=== PATIENT | female | born 1945 | race Caucasian/White ===

== ENCOUNTER 2016-10-30 01:20 | Emergency (ER) | payer MEDICARE, OTHER ==
[2016-10-30 03:53] VITALS: BP 165/85
[2016-10-30] MEDS ORDERED: Albuterol 0.083% 2.5 MG/3 ML Neb Soln NEB ONE (04:07)
--- NOTE | 2016-10-30 04:38 | EDM.PDOC ---
<Gilberto Steven Charisse - Last Filed: 10/30/16 07:02> ED HPI GENERAL MEDICAL PROBLEM - General Chief Complaint: Respiratory Problem Stated Complaint: HARD TIME BREATHING Time Seen by Provider: 10/30/16 04:00 Source of Information: Reports: Patient History Limitations: Reports: No Limitations - History of Present Illness INITIAL COMMENTS - FREE TEXT/NARRATIVE: This lady complains of shortness of breath and some chest discomfort. She's had some shortness of breath all day long. She also is describes some pain in the middle of her back that seems to be associated with breathing. She also gets some substernal chest pain which seems to be mild. She doesn't think that the substernal pain is really associated with breathing. There has been no fever. Just a little bit of nonproductive cough. This lady does use EPAP at night and without this EPAP she short of breath when she is lying in bed. Nothing that sounds like paroxysmal nocturnal dyspnea however. She seems to get a little bit of swelling in her legs mostly the right. She's prone to respiratory infections. 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 back Pain Score (Numeric/FACES): 4 - Related Data Allergies Allergy/AdvReac Type Severity Reaction Status Date / Time cephalexin [From Keflex] Allergy Anaphylactic Verified 10/30/16 03:39 Shock clindamycin Allergy Anaphylactic Verified 10/30/16 03:39 Shock codeine Allergy Anaphylactic Verified 10/30/16 03:39 Shock diphenhydramine Allergy Other Verified 10/30/16 03:39 [From Benadryl] epinephrine Allergy Other Verified 10/30/16 03:39 parsley Allergy Anaphylactic Verified 10/30/16 03:40 Shock Penicillins Allergy Hives Verified 10/30/16 03:39 celery Allergy Anaphylactic Uncoded 10/30/16 03:40 Shock cilantro Allergy Anaphylactic Uncoded 10/30/16 03:40 Shock Home Meds: Home Meds Aspirin [Halfprin] 81 mg PO DAILY 10/30/16 [History] Biotin 5 mg PO Q2D 10/30/16 [History] Cetirizine [ZyrTEC] 1 tab PO DAILY 10/30/16 [History] Docusate Sodium [Colace] 1 tab PO DAILY 10/30/16 [History] Glucosamine/D3/Boswellia Rosie [Osteo Bi-Flex Caplet] 1 tab PO Q2D 10/30/16 [ History] Hydrochlorothiazide 25 mg PO DAILY 10/30/16 [History] Metoprolol Succinate [Metoprolol Succinate] 12.5 mg PO DAILY 10/30/16 [History] Multivitamin [Multivitamins] 1 tab PO DAILY 10/30/16 [History] atorvaSTATin [Lipitor] 40 mg PO BEDTIME 10/30/16 [History] Past Medical History Cardiovascular History: Reports: CAD, High Cholesterol, [place], Pulmonary Hypertension Respiratory History: Reports: None [employer] History: Reports: Musculoskeletal History: Reports: Osteoarthritis Hematologic History: Reports: None Immunologic History: Reports: None Dermatologic History: Reports: None - Past Surgical History Cardiovascular Surgical History: Reports: Coronary Artery Bypass, Coronary Artery Stent Respiratory Surgical History: Reports: None GI Surgical History: Reports: Cholecystectomy Neurological Surgical History: Reports: Lumbar Spine Oncologic Surgical History: Reports: Biopsy of Breast Social & Family History - Tobacco Use Smoking Status *Q: Never Smoker - Caffeine Use Caffeine Use: Reports: None - Recreational Drug Use Recreational Drug Use: No ED ROS GENERAL - Review of Systems Review Of Systems: ROS reveals no pertinent complaints other than HPI. ED EXAM, GENERAL - Physical Exam Exam: See Below Exam Limited By: No Limitations General Appearance: Alert, WD/WN, No Apparent Distress Eye Exam: Bilateral Eye: Normal Inspection Throat/Mouth: Normal Inspection Respiratory/Chest: Lungs Clear, Normal Breath Sounds Cardiovascular: Normal Peripheral Pulses, Regular Rate, Rhythm, No Murmur GI/Abdominal: Non-Tender Extremities: Pedal Edema (About 1+ pedal edema to the right lower leg) Neurological: Alert, Oriented, No Motor/Sensory Deficits Psychiatric: Normal Affect Skin Exam: Warm, Dry Course - Vital Signs Last Recorded V/S: Last Vital Signs Temp 97.6 F 10/30/16 03:51 Pulse 58 L 10/30/16 03:51 Resp 16 10/30/16 03:51 BP 165/85 H 10/30/16 03:51 Pulse Ox 93 L 10/30/16 03:51 - Orders/Labs/Meds Orders: Active Orders 24 hr Category Date Time Status EKG Documentation Completion [RC] ASDIRECTED Care 10/30/16 04:06 Active RT Aerosol Therapy [RC] ASDIRECTED Care 10/30/16 04:07 Active Ang Chest [CT] Stat Exams 10/30/16 05:31 Taken Chest 2V [CR] Urgent Exams 10/30/16 04:06 Taken Saline Lock Insert [OM.PC] Urgent Oth 10/30/16 05:31 Ordered EKG 12 Lead [EK] Urgent Ther 10/30/16 04:06 Ordered Labs: Laboratory Tests 10/30/16 10/30/16 10/30/16 Range/Units 04:30 04:30 04:30 WBC 6.3 (4.5-11.0) K/uL RBC 4.71 (3.30-5.50) M/uL Hgb 14.7 (12.0-15.0) g/dL Hct 43.6 (36.0-48.0) % MCV 93 (80-98) fL MCH 31 (27-31) pg MCHC 34 (32-36) % Plt Count 176 (150-400) K/uL Neut % (Auto) 35 L (36-66) % Lymph % (Auto) 44 (24-44) % Culberson % (Auto) 16 H (2-6) % Eos % (Auto) 4 (2-4) % Baso % (Auto) 1 (0-1) % D-Dimer, Quantitative 838 H (0.0-400.0) ng/mL Sodium 142 (140-148) mmol/L Potassium 3.5 L (3.6-5.2) mmol/L Chloride 104 (100-108) mmol/L Carbon Dioxide 30 (21-32) mmol/L Anion Gap 11.5 (5.0-14.0) mmol/L BUN 13 (7-18) mg/dL Creatinine 0.8 (0.6-1.0) mg/dL Est Cr Clr Drug Dosing 59.72 mL/min Estimated GFR (MDRD) > 60 (>60) Glucose 136 H (74-106) mg/dL Calcium 8.9 (8.5-10.1) mg/dL Total Bilirubin 1.4 H (0.2-1.0) mg/dL AST 45 H (15-37) U/L ALT 55 (12-78) U/L Alkaline Phosphatase 70 (46-116) U/L Troponin I 0.046 (0.000-0.056) ng/mL [id number] Pept 138 H (5-125) pg/mL Total Protein 7.4 (6.4-8.2) g/dL Albumin 3.6 (3.4-5.0) g/dL Globulin 3.8 H (2.3-3.5) g/dL Albumin/Globulin Ratio 1.0 L (1.2-2.2) 10/30/16 Range/Units 07:00 WBC (4.5-11.0) K/uL RBC (3.30-5.50) M/uL Hgb (12.0-15.0) g/dL Hct (36.0-48.0) % MCV (80-98) fL MCH (27-31) pg MCHC (32-36) % Plt Count (150-400) K/uL Neut % (Auto) (36-66) % Lymph % (Auto) (24-44) % Culberson % (Auto) (2-6) % Eos % (Auto) (2-4) % Baso % (Auto) (0-1) % D-Dimer, Quantitative (0.0-400.0) ng/mL Sodium (140-148) mmol/L Potassium (3.6-5.2) mmol/L Chloride (100-108) mmol/L Carbon Dioxide (21-32) mmol/L Anion Gap (5.0-14.0) mmol/L BUN (7-18) mg/dL Creatinine (0.6-1.0) mg/dL Est Cr Clr Drug Dosing mL/min Estimated GFR (MDRD) (>60) Glucose (74-106) mg/dL Calcium (8.5-10.1) mg/dL Total Bilirubin (0.2-1.0) mg/dL AST (15-37) U/L ALT (12-78) U/L Alkaline Phosphatase (46-116) U/L Troponin I 0.042 (0.000-0.056) ng/mL [id number] Pept (5-125) pg/mL Total Protein (6.4-8.2) g/dL Albumin (3.4-5.0) g/dL Globulin (2.3-3.5) g/dL Albumin/Globulin Ratio (1.2-2.2) Meds: Medications Discontinued Medications Generic Name Dose Route Start Last Admin Trade Name Freq PRN Reason Stop Dose Admin Albuterol 2.5 mg 10/30/16 04:07 10/30/16 04:16 Proventil Neb Soln NEB 10/30/16 04:08 2.5 mg ONETIME ONE Administration Furosemide 20 mg 10/30/16 05:33 10/30/16 06:24 Lasix IVPUSH 10/30/16 05:34 20 mg ONETIME ONE Administration Sodium Chloride 100 mls @ 4 mls/sec 10/30/16 05:44 10/30/16 06:04 Normal Saline IV 10/30/16 05:45 4 mls/sec ASDIRECTED STA Administration Iopamidol 100 ml 10/30/16 05:44 10/30/16 06:03 Isovue-370 (76%) IV 10/30/16 05:45 100 ml . DIRECTED STA Administration Sodium Chloride 10 ml 10/30/16 05:31 10/30/16 06:24 Saline Flush FLUSH 10 ml ASDIRECTED PRN Administration Keep Vein Open - Radiology Interpretation Free Text/Narrative:: Chest x-ray shows mild cardiomegaly and bibasilar pulmonary edema - Re-Assessments/Exams Free Text/Narrative Re-Assessment/Exam: 10/30/16 06:53 EKG shows a sinus bradycardia at 54 bpm there is a nonspecific repolarization abnormality there is very slight ST depression in V4 and V5 and 6 Noted slightly increased troponin and a positive d-dimer. BNP is negative. The plan at this point is to do a chest CT to rule out pulmonary embolus. Three- hour troponin has been ordered for 7 AM. She received Lasix 20 mg IV. The patient will be turned over to the incoming ER doctor at 7 AM 10/30/16 07:[address] Montes Departure - Departure Disposition: Home, Self-Care 01 Clinical Impression: Atypical chest pain Dyspnea Qualifiers: Dyspnea type: unspecified Qualified Code(s): R06.00 - Dyspnea, unspecified - Discharge Information Instructions: Shortness of Breath, [id number], Nonspecific Chest Pain Referrals: PCP,None [Primary Care Provider] - Forms: ED Department Discharge Care Plan Goals: Reduce salt intake, increase activity as tolerated and return any time if worsening or concerns. No medication changes. Consider a stress test when you return home. <Aubrey Gonzáles - Last Filed: 10/30/16 10:30> Course - Re-Assessments/Exams Free Text/Narrative Re-Assessment/Exam: 10/30/16 07:56 Patient seen and evaluated by Dr. Steven, care turned over pending a troponin and vascular chest study. Both were normal, patient remained very stable and relatively asymptomatic. She was discharged and encouraged to set up a stress test when she returns home, and return to ER if worsening or concerns. Departure - Departure Time of Disposition: 08:16 Condition: Good
[2016-10-30] MEDS ORDERED: Sodium Chloride 0.9% 10 ML Syringe FLUSH PRN (05:31)
[2016-10-30] MEDS ORDERED: Furosemide 20 MG/2 ML VIAL IVPUSH ONE (05:33)
[2016-10-30] MEDS ORDERED: Sodium Chloride 0.9% 100 ML IV STA (05:44)
[2016-10-30] MEDS ORDERED: Iopamidol 755 Mg/ML 100 ML Bottle IV STA (05:44)
--- NOTE | 2016-10-30 11:06 | CR ---
Chest 2V INDICATION: pain FINDINGS: Sternotomy. Cardiac enlargement. Slight prominence of the pulmonary vascularity. No focal infiltrate or pleural effusion.
== END 2016-10-30 08:17 | disposition home or self-care (01) ==
LOC: JP.ED 01:20
DX: R07.89 Other chest pain (principal); R06.00 Dyspnea, unspecified; I25.10 Atherosclerotic heart disease of native coronary artery without angina pectoris; E78.00 Pure hypercholesterolemia, unspecified; I25.2 Old myocardial infarction; I27.2 Other secondary pulmonary hypertension; M19.90 Unspecified osteoarthritis, unspecified site; Z90.49 Acquired absence of other specified parts of digestive tract; Z95.1 Presence of aortocoronary bypass graft; Z79.82 Long term (current) use of aspirin; Z95.5 Presence of coronary angioplasty implant and graft; Z79.899 Other long term (current) drug therapy; Z88.0 Allergy status to penicillin; Z88.8 Allergy status to other drugs, medicaments and biological substances; Z88.1 Allergy status to other antibiotic agents; Z91.018 Allergy to other foods; Z88.5 Allergy status to narcotic agent
CPT/HCPCS: 36415; 71020; 71275; 80053; 83880; 84484; 85025; 85379; 93005; 93010; 96374; 99284; 99285; J1940; J7030; J7050; Q9967

== ENCOUNTER 2020-12-07 18:49 | Emergency (ER) | payer MEDICARE ==
[2020-12-07 20:12] VITALS: BP 140/66; PULSE 65
--- NOTE | 2020-12-07 20:21 | EDM.PDOC ---
ED HPI GENERAL MEDICAL PROBLEM - General Chief Complaint: Lower Extremity Injury/Pain Stated Complaint: R LEG PAIN Time Seen by Provider: 12/07/20 20:21 Source of Information: Reports: Patient, Family History Limitations: Reports: No Limitations - History of Present Illness INITIAL COMMENTS - FREE TEXT/NARRATIVE: pt had a contusion of the left ant lower leg a few days ago. The leg is now swelling and does not go down over nite. . She has had slight swelling in the other leg but that does go down. Onset: Gradual Duration: Hour(s): Location: Reports: Lower Extremity, Right Associated Symptoms: Reports: No Other Symptoms Right Lower Leg Pain Score (Numeric/FACES): 3 - Related Data Allergies Allergy/AdvReac Type Severity Reaction Status Date / Time cephalexin [From Keflex] Allergy Anaphylactic Verified 10/30/16 03:39 Shock clindamycin Allergy Anaphylactic Verified 10/30/16 03:39 Shock codeine Allergy Anaphylactic Verified 10/30/16 03:39 Shock diphenhydramine Allergy Other Verified 10/30/16 03:39 [From Benadryl] epinephrine Allergy Other Verified 10/30/16 03:39 parsley Allergy Anaphylactic Verified 10/30/16 03:40 Shock Penicillins Allergy Hives Verified 10/30/16 03:39 celery Allergy Anaphylactic Uncoded 10/30/16 03:40 Shock cilantro Allergy Anaphylactic Uncoded 10/30/16 03:40 Shock Home Meds: Home Meds Aspirin [Halfprin] 81 mg PO DAILY 10/30/16 [History] Biotin 5 mg PO Q2D 10/30/16 [History] Cetirizine [ZyrTEC] 1 tab PO DAILY 10/30/16 [History] Docusate Sodium [Colace] 1 tab PO DAILY 10/30/16 [History] Glucosamine/D3/Boswellia Rosie [Osteo Bi-Flex Caplet] 1 tab PO Q2D 10/30/16 [History] Hydrochlorothiazide 25 mg PO DAILY 10/30/16 [History] Metoprolol Succinate 12.5 mg PO DAILY 10/30/16 [History] Multivitamin [Multivitamins] 1 tab PO DAILY 10/30/16 [History] atorvaSTATin [Lipitor] 40 mg PO BEDTIME 10/30/16 [History] Anastrozole [Arimidex] 1 tab PO DAILY 12/07/20 [History] Aspirin [Low Dose Aspirin EC] 1 tab PO DAILY 12/07/20 [History] Clopidogrel [Plavix] 1 tab PO DAILY 12/07/20 [History] lisinopriL [Lisinopril] 1 tab PO DAILY 12/07/20 [History] Past Medical History Cardiovascular History: Reports: CAD, High Cholesterol, [place], Pulmonary Hypertension Respiratory History: Reports: None [employer] History: Reports: Musculoskeletal History: Reports: Osteoarthritis Hematologic History: Reports: None Immunologic History: Reports: None Dermatologic History: Reports: None - Past Surgical History Cardiovascular Surgical History: Reports: Coronary Artery Bypass, Coronary Artery Stent Respiratory Surgical History: Reports: None GI Surgical History: Reports: Cholecystectomy Neurological Surgical History: Reports: Lumbar Spine Oncologic Surgical History: Reports: Biopsy of Breast Social & Family History - Caffeine Use Caffeine Use: Reports: None Review of Systems - Review of Systems Review Of Systems: See Below Constitutional: Reports: No Symptoms Eyes: Reports: No Symptoms Ears: Reports: No Symptoms Nose: Reports: No Symptoms Mouth/Throat: Reports: No Symptoms Respiratory: Reports: Other (history of sob and has just had a big workup. ) Cardiovascular: Reports: No Symptoms GI/Abdominal: Reports: No Symptoms Genitourinary: Reports: No Symptoms Musculoskeletal: Reports: No Symptoms, Leg Pain Skin: Reports: No Symptoms ED EXAM, GENERAL - Physical Exam Exam: See Below Free Text/Narrative:: pt arrived with ahistory of swelling in the rt leg that is not going down over nit. She does have neuropathy. Exam Limited By: No Limitations General Appearance: Alert, Anxious, Mild Distress Ears: Normal TMs Nose: Normal Inspection Throat/Mouth: Normal Inspection Head: Atraumatic Neck: Normal Inspection Respiratory/Chest: Other (no rales heard) Cardiovascular: Regular Rate, Rhythm GI/Abdominal: Soft, Non-Tender Extremities: Other (rt leg is mildly swollen, she is tender in the midportion of the anterior leg, her pulse is good. She is not tender in the inner thigh area. ) Neurological: Alert, Normal Cognition Course - Vital Signs Last Recorded V/S: Last Vital Signs Temp 36.8 C 12/07/20 20:20 Pulse 65 12/07/20 20:20 Resp 16 12/07/20 20:20 BP 140/66 12/07/20 20:20 Pulse Ox 96 12/07/20 20:20 - Orders/Labs/Meds Orders: Active Orders 24 hr Category Date Time Status VL Duplex Lwr Ext Veins Ltd Rt [US] Stat Exams 12/07/20 20:19 Taken Labs: Laboratory Tests 12/07/20 Range/Units 20:30 D-Dimer, Quantitative 943.79 H (0.0-500.0) ng/mL - Re-Assessments/Exams Free Text/Narrative Re-Assessment/Exam: 12/07/20 21:56 ddimer showed mild elevation, us of the leg was neg. Departure - Departure Time of Disposition: 21:57 Disposition: Home, Self-Care 01 Condition: Fair Clinical Impression: Contusion of right leg - Discharge Information Referrals: TAVARES SALGUERO MD [Other] Forms: ED Department Discharge Care Plan Goals: moist warm packs to anterior leg. elevat leg when sitting rtc if increased problems. Sepsis Event Note (ED) - Evaluation Sepsis Screening Result: No Definite Risk - Focused Exam Vital Signs: Vital Signs Temp Pulse Resp BP Pulse Ox 12/07/20 20:20 36.8 C 65 16 140/66 96 12/07/20 20:11 36.8 C 65 16 140/66 96 - My Orders Last 24 Hours: My Active Orders 12/07/20 20:19 VL Duplex Lwr Ext Veins Ltd Rt [US] Stat - Assessment/Plan Last 24 Hours: My Active Orders 12/07/20 20:19 VL Duplex Lwr Ext Veins Ltd Rt [US] Stat
--- NOTE | 2020-12-08 09:42 | US ---
VL Duplex Lwr Ext Veins Ltd Rt INDICATION: swelling in the leg after a blow to the legi FINDINGS: Ultrasound examination of the lower extremity using Doppler and compressive technique demonstrates that the common femoral, femoral, and popliteal veins are patent, and negative for thrombus. The calf veins were segmentally visualized and are negative where seen. IMPRESSION: Negative for deep venous thrombosis.
== END 2020-12-07 22:05 | disposition home or self-care (01) ==
LOC: JP.ED 18:49
DX: S80.11XA Contusion of right lower leg, initial encounter (principal); I25.10 Atherosclerotic heart disease of native coronary artery without angina pectoris; E78.00 Pure hypercholesterolemia, unspecified; I25.2 Old myocardial infarction; Z95.1 Presence of aortocoronary bypass graft; Z88.1 Allergy status to other antibiotic agents; Z88.5 Allergy status to narcotic agent; Z88.8 Allergy status to other drugs, medicaments and biological substances; Z91.048 Other nonmedicinal substance allergy status; Z88.4 Allergy status to anesthetic agent; Z79.82 Long term (current) use of aspirin; Z79.899 Other long term (current) drug therapy; Z79.02 Long term (current) use of antithrombotics/antiplatelets; X58.XXXA Exposure to other specified factors, initial encounter
CPT/HCPCS: 36415; 85379; 93971-26; 93971-RT; 99282; 99284-25

== ENCOUNTER 2024-11-01 23:30 | Emergency (ER) | payer MEDICARE ==
[2024-11-02 01:46] LABS: BASOPHILS PERCENT AUTO 0.3 % (0.1-1.3); EOSINOPHILS ABSOLUTE AUTO 0.23 K/uL (0.00-0.40); EOSINOPHILS PERCENT AUTO 2.9 % (0.0-5.4); IMMATURE GRAN PERCENT AUTO 0.3 % (0.0-0.7); LYMPHOCYTES ABSOLUTE AUTO 2.86 K/uL (0.8-3.3); LYMPHOCYTES PERCENT AUTO 36.6 % (11.4-47.7); MONOCYTES ABSOLUTE AUTO 1.11 K/uL (0.20-0.90); MONOCYTES PERCENT AUTO 14.2 % (3.3-12.6); NEUTROPHILS ABSOLUTE AUTO 3.57 K/uL (1.0-7.6); NEUTROPHILS PERCENT AUTO 45.7 % (40.0-78.1); PLATELET COUNT,PLT 173 K/uL (130-375); RED BLOOD CELL COUNT 4.15 M/uL (3.77-5.24); WHITE BLOOD CELL COUNT,WBC 7.8 K/uL (3.2-11.0)
[2024-11-02 01:47] LABS: BASOPHILS ABSOLUTE AUTO 0.02 K/uL (0.00-0.10); IMMATURE GRAN ABSOLUTE AUTO 0.02 K/uL (0.00-0.23)
[2024-11-02 02:09] LABS: BLOOD UREA NITROGEN,BUN 17.0 mg/dL (7-18); CARBON DIOXIDE,CO2 30.0 mmol/L (21-32); CHLORIDE,CL 106.0 mmol/L (100-108); CREATININE 0.7 mg/dL (0.6-1.0); EST CRCL DRUG DOSING (CG) 60.56 mL/min; ESTIMATED GFR 89.0 mL/min (>60); GLUCOSE RANDOM 112.0 mg/dL (74-106); POTASSIUM,K 4.4 mmol/L (3.6-5.2); SODIUM,NA 143.0 mmol/L (140-148)
[2024-11-02 02:11] LABS: TROPONIN I HIGH SENSITIVITY 67.6 pg/mL (<=60.3)
[2024-11-02 04:15] VITALS: BP 136/72; PULSE 64
== END 2024-11-02 04:28 | disposition home or self-care (01) ==
LOC: JP.ED 23:30
DX: R09.89 Other specified symptoms and signs involving the circulatory and respiratory systems (principal); I25.10 Atherosclerotic heart disease of native coronary artery without angina pectoris; E78.00 Pure hypercholesterolemia, unspecified; I25.2 Old myocardial infarction; I10 Essential (primary) hypertension; Z95.1 Presence of aortocoronary bypass graft; Z88.1 Allergy status to other antibiotic agents; Z88.5 Allergy status to narcotic agent; Z88.8 Allergy status to other drugs, medicaments and biological substances; Z79.82 Long term (current) use of aspirin; Z79.899 Other long term (current) drug therapy
CPT/HCPCS: 36415; 80048; 84484; 85025; 93005; 99285